=== PATIENT | female | born 1935 | race Two or more races ===

== ENCOUNTER 2020-04-08 09:50 | Outpatient (CLI) | payer OTHER | END 2020-04-08 09:54 | disposition home or self-care (01) | LOC: TOM 09:50 | PROVIDERS: ATTEND Psychiatry & Neurology Clinical Neurophysiology | DX: G30.1 Alzheimer's disease with late onset (principal) ==

== ENCOUNTER → 2020-05-03 | Outpatient (CLI) | payer OTHER | END | disposition home or self-care (01) | LOC: MRI 04-28 10:45 | PROVIDERS: ATTEND Psychiatry & Neurology Clinical Neurophysiology | DX: I67.89 Other cerebrovascular disease (principal); G30.1 Alzheimer's disease with late onset | CPT/HCPCS: 70551 ==